=== PATIENT | male | born 1970 | race Caucasian/White ===

== ENCOUNTER 2017-11-20 21:20 | Emergency (ER) | payer OTHER ==
--- NOTE | 2017-11-20 21:29 | UC ---
Skin Complaint HPI - HPI Summary HPI Summary: 47 y/o male presents to the urgent care c/o tick bite his notice in his Rt flank tonight. Pt removed tick w/ twisters, but he thinks some remnants still present. Pt brought the tick which is not engorged and it is alive. Pt denies Hx of tick bites in the past. Pt denies fever, BIANCHI, joint pain, abdominal pain, chest pain, N/V/D. - History of Current Complaint Time Seen by Provider: 11/20/17 21:27 Stated Complaint: TICK Hx Obtained From: Patient Onset/Duration: Sudden Onset, Lasting Days - 1 day, Resolved Skin Exposure Onset/Duration: Days Ago - last night he was doing some gardening Timing: Constant Onset Severity: Mild Current Severity: Mild Pain Intensity: 1 Pain Scale Used: 0-10 Numeric Location: Discrete - lateral side of the abdomen Character: Redness Aggravating Factor(s): Touch Alleviating Factor(s): Other - tick removal Associated Signs & Symptoms: Positive: Rash Related History: Possible Reaction to: Insect - Allergy/Home Medications Allergies/Adverse Reactions: Allergies Allergy/AdvReac Type Severity Reaction Status Date / Time No Known Allergies Allergy Verified 11/20/17 21:35 Home Medications: Home Medications Atorvastatin* [Lipitor*] 20 mg PO DAILY 11/20/17 [History Confirmed 11/20/17] Glucosam/Chondr/Collagn/Hyalur [Th Glucosamine/Chondroiti] 1 cap PO DAILY [History Confirmed 11/20/17] Sertraline* [Zoloft*] 50 mg PO DAILY 11/20/17 [History Confirmed 11/20/17] Review of Systems Constitutional: Negative Skin: Rash - tick bite in the lateral side of abdomen Eyes: Negative ENT: Negative Respiratory: Negative Cardiovascular: Negative Gastrointestinal: Negative Genitourinary: Negative Motor: Negative Neurovascular: Negative Musculoskeletal: Negative Neurological: Negative Psychological: Negative Is Patient Immunocompromised?: No All Other Systems Reviewed And Are Negative: Yes PMH/Surg Hx/FS Hx/Imm Hx Previously Healthy: Yes Endocrine History: Dyslipidemia Cardiovascular History: Hypertension Psychological History: Depression - Surgical History Surgical History: Yes Surgery Procedure, Year, and Place: vasectomy - Family History Known Family History: Positive: None - Social History Occupation: Employed Full-time Lives: With Family Alcohol Use: Occasionally Substance Use Type: None Smoking Status (MU): Never Smoked Tobacco Physical Exam - Summary Physical Exam Summary: Vital Signs Reviewed: Yes General: well developed, well nourished male sitting in the examining table w/o any apparent distress. Eyes: Positive: Conjunctiva Clear - PERRLA, EOMI ENT: Positive: Normal ENT inspection, Hearing grossly normal, Pharynx normal, TMs normal Neck: Positive: Supple, Nontender, No Lymphadenopathy Respiratory: Positive: Chest nontender, Lungs clear, Normal breath sounds Cardiovascular: Positive: RRR, No Murmur, Pulses Normal Abdomen Description: Positive: Nontender, No Organomegaly, Soft. Negative: CVA Tenderness (R), CVA Tenderness (L) Bowel Sounds: Positive: Present Musculoskeletal: Positive: Strength Intact, ROM Intact, No Edema Neurological Exam: Normal Psychological Exam: Normal Skin: Positive: rashes - Rt lateral side of abdomen w/ tick bite with surrounding erythema, non tender to palpation. tick no longer present, no swelling or drainage observed. Triage Information Reviewed: Yes Course/Dx - Course Course Of Treatment: 47 y/o male presents to the urgent care c/o tick bite his notice in his Rt flank tonight. Pt removed tick w/ twisters, but he thinks some remnants still present. Pt brought the tick which is not engorged and it is alive. Pt denies Hx of tick bites in the past. Pt denies fever, BIANCHI, joint pain, abdominal pain, chest pain, N/V/D.Hx obtained. Rt lateral side of abdomen w/ tick bite with surrounding erythema, non tender to palpation. tick no longer present. Antibiotic prophylaxis with Doxycycline given to the patient to prevent lyme Disease.. Pt tolerated well medication. Pt advised to observe the area for the development or Erythema Migrans for upto 30 days following exposure. Advised if he develops fever or erythema Migrans to return to the clinic or PCP for further treatment . Pt's BP is elevated today advised to decrease salt in diet, monitor BP and f/u with PCP for further management. Pt understood and agreed with plan of care. - Differential Diagnoses - Skin Complaint Differential Diagnoses: Abscess, Cellulitis, Contact Dermatitis, Tick Born Illness, Other - insect bite - Diagnoses Provider Diagnoses: 1- Tick bite lateral side of abdomen. 2- Uncontrolled HTN Discharge - Sign-Out/Discharge Documenting (check all that apply): Discharge/Admit/Transfer - D/C home - Discharge Plan Condition: Stable Disposition: HOME Patient Education Materials: Tick Bite (ED), Low-Sodium Diet (ED) Referrals: Darrell Anne DO [Primary Care Provider] - 3 Days Additional Instructions: 1- Please observe the area for the development or Erythema Migrans for up to 30 days following exposure. Components of the tick saliva can cause transient erythema that should not be confused with Erythema Migrans. If you develop the bull's eye rash, fever, joint pains please return to the urgent care or f/u with your PCP for further management. 2-Antibiotic prophylaxis with Doxycycline was given to you today to prevent Lyme Disease. Lyme serology can be drawn in 2 weeks with your PCP to r/o Lyme disease since there is probability of negative results at early exposure. Apply Bacitracin topical oin BID x 7 days around tick bite 3-Your BP is elevated today. please decrease salt in your diet, monitor BP and if it continues to be elevated please f/u with your PCP for further management - Billing Disposition and Condition Condition: STABLE Disposition: HOME
[2017-11-20 21:32] VITALS: BP 143/73
[2017-11-20] MEDS ORDERED: DOXYcycline CAP(*) 100 MG PO ONE (21:41)
== END 2017-11-20 22:08 | disposition home or self-care (01) ==
LOC: UCCORT 21:20
DX: S30.861A Insect bite (nonvenomous) of abdominal wall, initial encounter (principal); W57.XXXA Bitten or stung by nonvenomous insect and other nonvenomous arthropods, initial encounter; Y93.H2 Activity, gardening and landscaping; Y92.007 Garden or yard of unspecified non-institutional (private) residence as the place of occurrence of the external cause; L02.211 Cutaneous abscess of abdominal wall; I10 Essential (primary) hypertension; F32.9 Major depressive disorder, single episode, unspecified; E78.5 Hyperlipidemia, unspecified
CPT/HCPCS: 99212; A9270-GY; G0463

== ENCOUNTER 2018-04-18 16:11 | Emergency (ER) | payer OTHER ==
[2018-04-18 16:36] VITALS: BP 150/92
--- NOTE | 2018-04-18 17:07 | UC ---
UC General HPI - HPI Summary HPI Summary: pt c/o nasal congestion, post nasal drip causing a sore throat and ear pressure- pain x 1 week. now much worse and has bloody thick yellow nasal drainage. - History of Current Complaint Chief Complaint: UCGeneralIllness Stated Complaint: EARS,SORE THROAT,HEADACHE Time Seen by Provider: 04/18/18 17:02 Hx Obtained From: Patient Onset/Duration: Gradual Onset Timing: Constant Pain Intensity: 4 Associated Signs & Symptoms: Negative: Fever - Allergy/Home Medications Allergies/Adverse Reactions: Allergies Allergy/AdvReac Type Severity Reaction Status Date / Time No Known Allergies Allergy Verified 11/20/17 21:35 Home Medications: Home Medications Cholecalciferol (Vitamin D3) [Vitamin D3] 1,000 unit PO DAILY 04/18/18 [History Confirmed 04/18/18] PMH/Surg Hx/FS Hx/Imm Hx - Additional Past Medical History Additional PMH: sinusitis Endocrine History: Dyslipidemia Cardiovascular History: Hypertension - Surgical History Surgical History: Yes Surgery Procedure, Year, and Place: vasectomy - Family History Known Family History: Positive: Cardiac Disease, Hypertension - Social History Occupation: Employed Full-time Lives: With Family Alcohol Use: Weekly Substance Use Type: None Smoking Status (MU): Never Smoked Tobacco - Immunization History Vaccination Up to Date: Yes Review of Systems Constitutional: Negative Skin: Negative Eyes: Negative ENT: Sore Throat, Ear Ache, Nasal Discharge, Sinus Congestion, Sinus Pain/ Tenderness Respiratory: Negative Cardiovascular: Negative Gastrointestinal: Negative Genitourinary: Negative Motor: Negative Neurovascular: Negative Musculoskeletal: Negative Neurological: Negative Psychological: Negative Is Patient Immunocompromised?: No All Other Systems Reviewed And Are Negative: Yes Physical Exam Triage Information Reviewed: Yes Appearance: Well-Appearing Vital Signs: Initial Vital Signs Temp 99.2 F 04/18/18 16:31 Pulse 70 04/18/18 16:31 Resp 16 04/18/18 16:31 BP 150/92 04/18/18 16:31 Pulse Ox 98 04/18/18 16:31 Vital Signs Reviewed: Yes Eyes: Positive: Conjunctiva Clear ENT: Positive: Pharynx normal, Nasal congestion, TMs normal, Sinus tenderness. Negative: Nasal drainage Neck: Positive: Supple, Nontender, No Lymphadenopathy Respiratory: Positive: Lungs clear, Normal breath sounds Cardiovascular: Positive: RRR, No Murmur Abdomen Description: Positive: Nontender, No Organomegaly, Soft Bowel Sounds: Positive: Present Musculoskeletal: Positive: ROM Intact Neurological: Positive: Alert Psychological: Positive: Age Appropriate Behavior Skin Exam: Normal Course/Dx - Course Course Of Treatment: sinusitis - Differential Dx - Multi-Symptom Provider Diagnoses: sinusitis Discharge - Sign-Out/Discharge Documenting (check all that apply): Patient Departure All imaging exams completed and their final reports reviewed: No Studies - Discharge Plan Condition: Stable Disposition: HOME Prescriptions: Amoxicillin/Clavulanate TAB* [Augmentin TAB 875*] 875 mg PO BID 10 Days #20 tab Patient Education Materials: Sinusitis (ED) Referrals: Darrell Anne DO [Primary Care Provider] - 7 Days - Billing Disposition and Condition Condition: STABLE Disposition: Home
== END 2018-04-18 17:13 | disposition home or self-care (01) ==
LOC: UCCORT 16:11
DX: J32.9 Chronic sinusitis, unspecified (principal); I10 Essential (primary) hypertension
CPT/HCPCS: 99212; G0463